=== PATIENT | male | born 1995 | race Hispanic/Latino ===

== ENCOUNTER 2021-03-27 12:38 | Outpatient (CLI) | payer BC | END 2021-03-27 12:39 | disposition home or self-care (01) | LOC: SCSMRI 12:38 | PROVIDERS: ATTEND Orthopaedic Surgery | DX: S93.402A Sprain of unspecified ligament of left ankle, initial encounter (principal) ==

== ENCOUNTER 2024-09-15 10:22 | Outpatient (CLI) | payer BC ==
[2024-09-15] MEDS ORDERED: Gadobenate Dimeglumine 2 ML, Sodium Chloride 0.9% 250 ML 10 ML, Iopamidol 8 ML, Lidocai... FS SCH (12:45)
[2024-09-15] MEDS ORDERED: Sodium Bicarbonate 2.5 MEQ/5 ML SDV ONE (13:15)
[2024-09-15] MEDS ORDERED: Magnevist 469MG/ML 20 ML VIAL ONE (13:20)
== END 2024-09-15 10:23 | disposition home or self-care (01) ==
LOC: MRI 10:22
PROVIDERS: ATTEND Orthopaedic Surgery
DX: M25.512 Pain in left shoulder (principal); M24.812 Other specific joint derangements of left shoulder, not elsewhere classified; M25.812 Other specified joint disorders, left shoulder
CPT/HCPCS: 23350; 77002; A9577; J0171; J7050; Q9967